=== PATIENT | female | born 1985 | race Caucasian/White ===

== ENCOUNTER 2016-07-29 21:46 | Emergency (ER) | payer BC ==
[2016-07-29] MEDS ORDERED: Cephalexin 500 MG Cap PO ONE (22:08)
[2016-07-29] MEDS ORDERED: Ibuprofen 800 MG Tab PO ONE (22:10)
--- NOTE | 2016-07-29 22:12 | EDM.PDOC ---
ED HPI GENERAL MEDICAL PROBLEM - General Chief Complaint: General Stated Complaint: ABCESS /TOOTH PAIN Time Seen by Provider: 07/29/16 22:02 Source of Information: Reports: Patient History Limitations: Reports: No limitations - History of Present Illness INITIAL COMMENTS - FREE TEXT/NARRATIVE: HISTORY AND PHYSICAL: History of present illness: [21-year-old female with a history of poor dentition which she describes as requiring $30,000 of dental implants, now presents emergency department complaining of left upper dental pain. Patient has a toothache. No fevers chills sweats or shaking chills. No headache or stiff neck. Has not seen a dentist recently is concerned she has a dental infection] Review of systems: As per history of present illness and below otherwise all systems reviewed and negative. Past medical history: As per history of present illness and as reviewed below otherwise noncontributory. Surgical history: As per history of present illness and as reviewed below otherwise noncontributory. Social history: No reported history of drug or alcohol abuse. Family history: As per history of present illness and as reviewed below otherwise noncontributory. Well-appearing patient no acute distress supple neck alert and communicative no facial swelling HEENT: Normocephalic, atraumatic, pupils normal and symmetrical, supple neck, no meningismus, normal color Lungs: Normal and symmetrical chest wall excursion bilateral with no tachypnea or increased work of breathing, grossly normal chest exam Heart: No tachycardia in triage Abdomen: Normal-appearing, nondistended, no visible mass or asymmetry Pelvis: Normal-appearing Genitourinary: Deferred Rectal exam: Deferred Extremities: Atraumatic, normal use and range of motion, no visible evidence of gross neurovascular compromise Neuro: Awake, alert, oriented. Normal and appropriate mental status. Cranial nerves grossly unremarkable. Motor function normal. Nonfocal neurologic exam. Diagnostics: [] Therapeutics: [] Impression: [Toothache Dental caries] Plan: [Patient carries requesting pain medicine discussed with patient will prescribe Keflex though no clinical evidence of infection on exam except patient's claim of dentalgia she is not reproducible with percussion of the tooth in question. She is aware to followup with a dentist as soon as possible the patient agrees with outpatient followup, and strict return precautions were given] Definitive disposition and diagnosis as appropriate pending reevaluation and review of above. Left Upper Tooth/Teeth Pain Score (Numeric/FACES): 8 - Related Data Allergies Allergy/AdvReac Type Severity Reaction Status Date / Time penicillin G Allergy Anaphylactic Verified 07/29/16 21:59 Shock penicillin V Allergy Anaphylactic Verified 07/29/16 21:59 Shock Penicillins Allergy Anaphylactic Verified 07/29/16 21:59 Shock Home Meds: Home Meds . [No Known Home Meds] 07/29/16 [History] Past Medical History - Infectious Disease History Infectious Disease History: Reports: Chicken pox - Past Surgical History HEENT Surgical History: Reports: Oral surgery Other HEENT Surgeries/Procedures: Dental surgeries Social & Family History - Family History Family Medical History: Noncontributory - Tobacco Use Smoking Status *Q: Never Smoker Second Hand Smoke Exposure: No - Caffeine Use Caffeine Use: Reports: Energy drinks Caffeine Use Comment: 1drink/day - Recreational Drug Use Recreational Drug Use: No ED ROS GENERAL - Review of Systems Review Of Systems: See Below (History of present illness) ED EXAM, GENERAL - Physical Exam Exam: See Below (History of present illness) Course - Vital Signs Last Recorded V/S: Last Vital Signs Temp 37.1 C 07/29/16 21:56 Pulse 90 07/29/16 22:24 Resp 14 07/29/16 22:24 BP 140/103 H 07/29/16 22:24 Pulse Ox 100 07/29/16 22:24 - Orders/Labs/Meds Meds: Medications Discontinued Medications Generic Name Dose Route Start Last Admin Trade Name Freq PRN Reason Stop Dose Admin Cephalexin 500 mg 07/29/16 22:08 07/29/16 22:24 Keflex PO 07/29/16 22:09 500 mg ONETIME ONE Administration Ibuprofen 800 mg 07/29/16 22:10 07/29/16 22:24 Motrin PO 07/29/16 22:11 800 mg ONETIME ONE Administration Departure - Departure Time of Disposition: 22:11 Disposition: Home, Self-Care 01 Condition: good Clinical Impression: Caries, Toothache Instructions: Dental Care and Dentist Visits, Dental Caries Referrals: PCP,None [Primary Care Provider] - Forms: ED Department Discharge Additional Instructions: You have multiple cavities. Be sure to do good dental hygiene at all times at least daily. Finish Keflex as prescribed. Take Motrin and Tylenol as needed for pain and followup with your dentist in one to 2 days.
[2016-07-29 22:54] VITALS: BP 140/103
== END 2016-07-29 22:24 | disposition home or self-care (01) ==
LOC: MW.ED 21:46
DX: K02.9 Dental caries, unspecified (principal); Z88.0 Allergy status to penicillin
CPT/HCPCS: 99282; A9270; 99283

== ENCOUNTER 2016-09-13 07:56 | Emergency (ER) | payer BC, MEDICAID ==
[2016-09-13 08:11] VITALS: BP 133/69
--- NOTE | 2016-09-13 08:15 | EDM.PDOC ---
ED HPI GENERAL MEDICAL PROBLEM - General Chief Complaint: ANESTHESIOLOGIST PHYSICIAN Problem Stated Complaint: POSSIBLE MISCARRIAGE Time Seen by Provider: 09/13/16 08:04 - History of Present Illness INITIAL COMMENTS - FREE TEXT/NARRATIVE: HISTORY AND PHYSICAL: History of present illness: The patient is a healthy 31-year-old female who is a 3 para 2 with last menstrual period July 05 an estimated gestational age 9 weeks 6 days and presents for evaluation of possible retained products of conception. According to the patient she began bleeding heavily on Monday, 2-1/2 days ago, and she states that she saw a "sac" in the toilet. After that time she says that the bleeding tapered off and she is barely having spotting right now and she states that the cramping she was having in her pelvis area has also reduced significantly. She has not had any nausea or vomiting or upper abdominal pain no flank pain and she states that her blood type is A+. She has had no urinary complaints and no gynecologic problems surgeries in the past she is worried about retained products and wants evaluation for same. The patient does not have a local [employer] physician Review of systems: As per history of present illness and below otherwise all systems reviewed and negative. Past medical history: As per history of present illness and as reviewed below otherwise noncontributory. Surgical history: As per history of present illness and as reviewed below otherwise noncontributory. Social history: No reported history of drug or alcohol abuse. Family history: As per history of present illness and as reviewed below otherwise noncontributory. Physical exam: Gen.: Well-developed well-nourished female who is nontoxic vital signs are noted by me HEENT: Atraumatic, normocephalic, negative for conjunctival pallor or scleral icterus, mucous membranes moist, throat clear, neck supple, nontender, trachea midline. Lungs: Clear to auscultation, breath sounds equal bilaterally, chest nontender. Heart: S1S2, regular rate and rhythm no overt murmurs Abdomen: Soft, nondistended, nontender. Negative for masses or hepatosplenomegaly. NABS Pelvis: Stable nontender. Genitourinary: Deferred. Rectal: Deferred. Extremities: Atraumatic, negative for cords or calf pain. Neurovascular unremarkable. Neuro: Awake, alert, oriented. Cranial nerves II through XII unremarkable. Cerebellum unremarkable. Motor and sensory unremarkable throughout. Exam nonfocal. Diagnostics: CBC serum quantitative hCG UA urine culture if indicated ABO Rh pelvic ultrasound Therapeutics: After initial evaluation I returned a few minutes later to perform the pelvic exam and now the patient is refusing pelvic exam refusing lab work and refusing a pelvic ultrasound. She states she wants to leave and wants to make an outpatient [employer] appointment. We will discharge her. Please also note that when I returned to the computer to do her paperwork literally less than 1 minute after I left the room the patient put on her clothes absconded from the ED prior to discharge papers. Impression: Vaginal bleeding with Definitive disposition and diagnosis as appropriate pending reevaluation and review of above. vaginal cramping Pain Score (Numeric/FACES): 5 - Related Data Allergies Allergy/AdvReac Type Severity Reaction Status Date / Time penicillin G Allergy Anaphylactic Verified 09/13/16 08:08 Shock penicillin V Allergy Anaphylactic Verified 09/13/16 08:08 Shock Penicillins Allergy Anaphylactic Verified 09/13/16 08:08 Shock Home Meds: Home Meds . [No Known Home Meds] 07/29/16 [History] Past Medical History - Infectious Disease History Infectious Disease History: Reports: Chicken Pox - Past Surgical History HEENT Surgical History: Reports: Oral Surgery Social & Family History - Family History Family Medical History: Noncontributory - Tobacco Use Smoking Status *Q: Never Smoker Second Hand Smoke Exposure: No - Caffeine Use Caffeine Use: Reports: Energy Drinks Caffeine Use Comment: 1drink/day - Recreational Drug Use Recreational Drug Use: No ED ROS GENERAL - Review of Systems Review Of Systems: ROS reveals no pertinent complaints other than HPI. ED EXAM, GENERAL - Physical Exam Exam: See Below (See dictation) Course - Vital Signs Last Recorded V/S: Last Vital Signs Temp 36.6 C 09/13/16 08:08 Pulse 90 09/13/16 08:08 Resp 18 09/13/16 08:08 BP 133/69 09/13/16 08:08 Pulse Ox 98 09/13/16 08:08 - Orders/Labs/Meds Orders: Active Orders 24 hr Category Date Time Status OB 1st Tri Sgl 1st Gest [US] Stat Exams 09/13/16 08:12 Ordered ABO/RH TYPE [BBK] Stat Lab 09/13/16 08:12 Ordered CBC WITH AUTO DIFF [HEME] Stat Lab 09/13/16 08:12 Ordered HCG QUANTITATIVE,SERUM [CHEM] Stat Lab 09/13/16 08:12 Ordered UA W/MICROSCOPIC [URIN] Stat Lab 09/13/16 08:12 Uncollected Departure - Departure Time of Disposition: 08:18 Disposition: Home, Self-Care 01 Condition: Good Clinical Impression: Vaginal bleeding in Qualifiers: Trimester: first trimester Qualified Code(s): O46.91 - Antepartum hemorrhage, unspecified, first trimester - Discharge Information Forms: ED Department Discharge Additional Instructions: The following information is given to patients seen in the emergency department who are being discharged to home. This information is to outline your options for follow-up care. We provide all patients seen in our emergency department with a follow-up referral. The need for follow-up, as well as the timing and circumstances, are variable depending upon the specifics of your emergency department visit. If you don't have a primary care physician on staff, we will provide you with a referral. We always advise you to contact your personal physician following an emergency department visit to inform them of the circumstance of the visit and for follow-up with them and/or the need for any referrals to a consulting specialist. The emergency department will also refer you to a specialist when appropriate. This referral assures that you have the opportunity for followup care with a specialist. All of these measure are taken in an effort to provide you with optimal care, which includes your followup. Under all circumstances we always encourage you to contact your private physician who remains a resource for coordinating your care. When calling for followup care, please make the office aware that this follow-up is from your recent emergency room visit. If for any reason you are refused follow-up, please contact the [facility] emergency department at and ask to speak to the emergency department charge nurse. [facility] [address] [address] Please call and follow up with an [employer] M.D. for further care and evaluation return to ER as needed and as discussed - My Orders Last 24 Hours: My Active Orders 09/13/16 08:12 OB 1st Tri Sgl 1st Gest [US] Stat ABO/RH TYPE [BBK] Stat CBC WITH AUTO DIFF [HEME] Stat HCG QUANTITATIVE,SERUM [CHEM] Stat UA W/MICROSCOPIC [URIN] Stat - Assessment/Plan Last 24 Hours: My Active Orders 09/13/16 08:12 OB 1st Tri Sgl 1st Gest [US] Stat ABO/RH TYPE [BBK] Stat CBC WITH AUTO DIFF [HEME] Stat HCG QUANTITATIVE,SERUM [CHEM] Stat UA W/MICROSCOPIC [URIN] Stat
== END 2016-09-13 08:23 | disposition left against medical advice (07) ==
LOC: MW.ED 07:56
DX: O20.9 Hemorrhage in early pregnancy, unspecified (principal); Z88.0 Allergy status to penicillin; Z3A.09 9 weeks gestation of pregnancy
CPT/HCPCS: 99282; 99283

== ENCOUNTER 2017-07-04 13:56 | Emergency (ER) | payer BC ==
--- NOTE | 2017-07-04 14:16 | EDM.PDOC ---
ED HPI GENERAL MEDICAL PROBLEM - General Chief Complaint: Skin Complaint Stated Complaint: CYST UNDER RT ARM Time Seen by Provider: 07/04/17 13:57 Source of Information: Reports: Patient History Limitations: Reports: No Limitations - History of Present Illness INITIAL COMMENTS - FREE TEXT/NARRATIVE: Presents to the ER reporting a abscess in her right axilla. Firm and very tender no drainage. No fever or systemic symptoms. She is otherwise healthy without any chronic medical problems. A provider had given her some Bactrim which she took for a couple of days but now she has a yeast infection from that. Right Arm Pain Score (Numeric/FACES): 10 - Related Data Allergies Allergy/AdvReac Type Severity Reaction Status Date / Time penicillin G Allergy Anaphylactic Verified 07/04/17 14:07 Shock penicillin V Allergy Anaphylactic Verified 07/04/17 14:07 Shock Penicillins Allergy Anaphylactic Verified 07/04/17 14:07 Shock Home Meds: Home Meds . [No Known Home Meds] 07/29/16 [History] Past Medical History - Infectious Disease History Infectious Disease History: Reports: Chicken Pox - Past Surgical History HEENT Surgical History: Reports: Oral Surgery Social & Family History - Family History Family Medical History: Noncontributory - Tobacco Use Smoking Status *Q: Never Smoker Second Hand Smoke Exposure: No - Caffeine Use Caffeine Use: Reports: Energy Drinks Caffeine Use Comment: 1drink/day - Recreational Drug Use Recreational Drug Use: No ED ROS GENERAL - Review of Systems Review Of Systems: ROS reveals no pertinent complaints other than HPI. ED EXAM, SKIN/RASH Exam: See Below Exam Limited By: No Limitations General Appearance: Alert, Moderate Distress (Due to tenderness and pain) Ears: Normal External Exam Nose: Normal Inspection Throat/Mouth: Normal Inspection Head: Atraumatic, Normocephalic Neck: Normal Inspection Respiratory/Chest: No Respiratory Distress, Lungs Clear, Normal Breath Sounds Cardiovascular: Regular Rate, Rhythm, No Murmur Back Exam: Normal Inspection Extremities: Normal Inspection Neurological: Alert, Oriented Psychiatric: Normal Affect, Normal Mood Skin: Warm, Dry, Intact, Normal Color, Other ([id number] firm, very tender, light pink, non-fluctuant mass in the right axilla) Lymphatic: No Adenopathy Course - Vital Signs Last Recorded V/S: Last Vital Signs Temp 36.9 C 07/04/17 14:02 Pulse 119 H 07/04/17 14:02 Resp 20 07/04/17 14:02 BP 141/91 H 07/04/17 14:02 Pulse Ox 99 07/04/17 14:02 Departure - Departure Time of Disposition: 14:12 Disposition: Home, Self-Care 01 Condition: Good Clinical Impression: Abscess - Discharge Information Referrals: PCP,None [Primary Care Provider] - [facility] [Outside] [facility] [Outside] Additional Instructions: 1. Your abscess is not fluctuate (has not come to a head). This may take several more days. The treatment is incision and drainage. When the abscess is fluctuant and you can see a pus pocket, the abscess can be lanced and drained. After it is open moist hot packs or warm showers directed at the area for 20 minutes 3-4 times a day. 2. Wear loose nonrestrictive clothing. 3. Fluconazole once daily today and in 72 hours for perineal yeast infection. 4. [place] every 6 hours for pain. No driving or operating machinery. 5. Stop the Bactrim. Antibiotics are not indicated for uncomplicated abscess in otherwise healthy people.
[2017-07-04 14:45] VITALS: BP 110/80
== END 2017-07-04 14:28 | disposition home or self-care (01) ==
LOC: MW.ED 13:56
DX: L02.411 Cutaneous abscess of right axilla (principal); Z88.0 Allergy status to penicillin
CPT/HCPCS: 99282

== ENCOUNTER 2017-07-16 09:39 | Emergency (ER) | payer BC ==
[2017-07-16] MEDS ORDERED: Lidocaine 1% 20 ML MDV INJECT ONE (10:20)
--- NOTE | 2017-07-16 10:45 | EDM.PDOC ---
<Penny Macdonald - Last Filed: 07/16/17 10:40> ED HPI GENERAL MEDICAL PROBLEM - General Chief Complaint: Wound Recheck Stated Complaint: PT WOULD TO CHANGE HER PACKING(POST SURGERY) Time Seen by Provider: 07/16/17 10:40 Source of Information: Reports: Patient History Limitations: Reports: No Limitations - History of Present Illness INITIAL COMMENTS - FREE TEXT/NARRATIVE: HISTORY AND PHYSICAL: 32 year old FEMALE presents for wound reevaluation and repacking right axilla History of Present Illness: []Patient had seen Dr. Palafox days ago had an abscess lanced under her right axilla She was seen for repacking Complaing of tenderness and inability to reach this on her own Review of Systems: As per history of present illness and below otherwise all systems reviewed and negative. Past medical history: As per history of present illness and as reviewed below otherwise noncontributory. Surgical history: As per history of present illness and as reviewed below otherwise noncontributory. Social history: No reported history of drug or alcohol abuse. Family history: As per history of present illness and as reviewed below otherwise noncontributory. Physical exam: Alert and oriented female quite anxious about this wound packing to questions appropriately in full sentences without any shortness of breath HEENT: Atraumatic, normocehpalic, pupils reactive, negative for conjunctival pallor or scleral icterus, mucous membranes moist, throat clear, neck supple, nontender, trachea midline. Lungs: Clear to auscultation, breath sounds equal bilaterally, chest non tender. Heart: S1S2, regular, negative for clicks, rubs, or JVD. Abdomen: Soft, nondistended, nontender. Negative for masses or hepatossplenmegaly. Negative for costovertebral tenderness. Pelvis: Stable nontender. Genitourinary: Deferred. Rectal: Deferred Extremities: Atraumatic, negative for cords or calf pain. Neurovascular unremarkable. Neuro: Awake, alert, oriented. Cranial nerves II through XII unremarkable. Cerebellum unremarkable. Motor and sensory unremarkable throughout. Exam nonfocal. 1% lidocaine was utilized to anesthetize this area prior to irrigation. Pressure applied and copious amounts of thick exudate was expelled. Wound was then irrigated with half hydrogen peroxide half sterile water. Again copious amounts of material was expelled. Iodoform gauze 1/4 inch 4 inches was then reinserted for packing. Patient is advised to follow-up with Dr. Moore's office tomorrow for reevaluation and repacking Diagnostics: [] Therapeutics: []Packing, irrigation Impression: []Wound evaluation/dressing changes Plan: []Discharged home Advised to see Dr. Moore tomorrow Definitive disposition and diagnosis as appropriate pending reevaluation and review of above. Onset: Gradual Duration: Day(s): right armpit Pain Score (Numeric/FACES): 10 - Related Data Allergies Allergy/AdvReac Type Severity Reaction Status Date / Time penicillin G Allergy Anaphylactic Verified 07/16/17 09:48 Shock penicillin V Allergy Anaphylactic Verified 07/16/17 09:48 Shock Penicillins Allergy Anaphylactic Verified 07/16/17 09:48 Shock Home Meds: Home Meds Clindamycin HCl 75 mg PO DAILY 07/16/17 [History] oxyCODONE HCl/Acetaminophen [oxyCODONE-Acetaminophen 5-325] 1 tab PO DAILY 07/16 [History] Past Medical History HEENT History: Reports: None Cardiovascular History: Reports: None Respiratory History: Reports: None Gastrointestinal History: Reports: None Genitourinary History: Reports: None 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: Musculoskeletal History: Reports: None Neurological History: Reports: None Psychiatric History: Reports: None Endocrine/Metabolic History: Reports: None Hematologic History: Reports: None Immunologic History: Reports: None Oncologic (Cancer) History: Reports: None Dermatologic History: Reports: Other (See Below) Other Dermatologic History: abscess - Infectious Disease History Infectious Disease History: Reports: Chicken Pox - Past Surgical History Head Surgeries/Procedures: Reports: None HEENT Surgical History: Reports: Oral Surgery Cardiovascular Surgical History: Reports: None Respiratory Surgical History: Reports: None GI Surgical History: Reports: None Female Surgical History: Reports: None Endocrine Surgical History: Reports: None Musculoskeletal Surgical History: Reports: None Oncologic Surgical History: Reports: None Dermatological Surgical History: Reports: None Social & Family History - Family History Family Medical History: Noncontributory - Tobacco Use Smoking Status *Q: Current Every Day Smoker Years of Tobacco use: 8 Packs/Tins Daily: 0.5 Second Hand Smoke Exposure: No - Caffeine Use Caffeine Use: Reports: Coffee, Energy Drinks, Soda Caffeine Use Comment: 1drink/day - Recreational Drug Use Recreational Drug Use: No ED ROS GENERAL - Review of Systems Review Of Systems: ROS reveals no pertinent complaints other than HPI. ED EXAM, SKIN/RASH Exam: See Below (see dictation) Course - Vital Signs Last Recorded V/S: Last Vital Signs Temp 36.5 C 07/16/17 09:50 Pulse 85 07/16/17 09:50 Resp 18 07/16/17 09:50 BP 145/88 H 07/16/17 09:50 Pulse Ox 98 07/16/17 09:50 - Orders/Labs/Meds Meds: Medications Discontinued Medications Generic Name Dose Route Start Last Admin Trade Name [place] PRN Reason Stop Dose Admin Lidocaine HCl 20 ml 07/16/17 10:20 07/16/17 10:59 Xylocaine 1% INJECT 07/16/17 10:21 4 ml ONETIME ONE Administration Departure - Departure Time of Disposition: 10:45 Disposition: Home, Self-Care 01 Condition: Good Clinical Impression: Abscess, Encounter for evaluation of wound - Discharge Information Instructions: Wound Packing, Skin Abscess, [id number], Wound Care, Adult Referrals: PCP,None [Primary Care Provider] - Forms: ED Department Discharge Additional Instructions: The following information is given to patients seen in the emergency department who are being discharged to home. This information is to outline your options for follow-up care. We provide all patients seen in our emergency department with a follow-up referral. The need for follow-up, as well as the timing and circumstances, are variable depending upon the specifics of your emergency department visit. If you don't have a primary care physician on staff, we will provide you with a referral. We always advise you to contact your personal physician following an emergency department visit to inform them of the circumstance of the visit and for follow-up with them and/or the need for any referrals to a consulting specialist. The emergency department will also refer you to a specialist when appropriate. This referral assures that you have the opportunity for followup care with a specialist. All of these measure are taken in an effort to provide you with optimal care, which includes your followup. Under all circumstances we always encourage you to contact your private physician who remains a resource for coordinating your care. When calling for followup care, please make the office aware that this follow-up is from your recent emergency room visit. If for any reason you are refused follow-up, please contact the [facility] emergency department at and asked to speak to the emergency department charge nurse. Copious amounts of exudate were removed from your wound Packing of approximate 4 inches really inserted after irrigation Is recommended that you follow-up with Dr. Moore tomorrow for packing Prescription for hydrocodone/APAP 5/325 one or 2 prior to packing changes is recommended for 21 no refill <Ida Comer - Last Filed: 07/16/17 11:09> ED HPI GENERAL MEDICAL PROBLEM - History of Present Illness INITIAL COMMENTS - FREE TEXT/NARRATIVE: Please add to procedure note that it was performed on the right axilla, the site of her prior I&D per Dr Moore.
[2017-07-16 11:22] VITALS: BP 131/90
== END 2017-07-16 11:10 | disposition home or self-care (01) ==
LOC: MW.ED 09:39
DX: L02.411 Cutaneous abscess of right axilla (principal); F17.210 Nicotine dependence, cigarettes, uncomplicated; Z88.0 Allergy status to penicillin; Z79.899 Other long term (current) drug therapy
CPT/HCPCS: 99282

== ENCOUNTER 2022-04-13 08:23 | Emergency (ER) | payer BC ==
[2022-04-13] MEDS ORDERED: Famotidine 20 MG Tab PO ONE (09:01)
[2022-04-13] MEDS ORDERED: predniSONE 10 MG Tab PO ONE (09:01)
[2022-04-13] MEDS ORDERED: diphenhydrAMINE 50 MG/ML SDV IM ONE (09:01)
[2022-04-13 09:49] VITALS: BP 116/84; PULSE 99
== END 2022-04-13 09:43 | disposition home or self-care (01) ==
LOC: MW.ED 08:23
DX: L29.9 Pruritus, unspecified (principal); T37.0X5A Adverse effect of sulfonamides, initial encounter; T36.8X5A Adverse effect of other systemic antibiotics, initial encounter; Z88.0 Allergy status to penicillin; Z88.8 Allergy status to other drugs, medicaments and biological substances
CPT/HCPCS: 96372; 99282; A9270; J1200; 99283